=== PATIENT | female | born 1965 | race Caucasian/White ===

== ENCOUNTER 2019-01-09 15:37 | Emergency (ER) | payer SELFPAY ==
[~2019-01-09] VITALS: Ht 157.5 cm; Wt 100.0 kg
[~2019-01-09 15:37] MED LIST: LEVO112T4 PO
[2019-01-09] MEDS ORDERED: SODIUM PHOS/SODIUM BIPHOS 133 ML ENEMA PR ONE (16:30)
[2019-01-09] MEDS ORDERED: MAGNESIUM CITRATE 300 ML ORAL SOLUTION PO ONE (16:30)
[2019-01-09] MEDS ORDERED: KETOROLAC TROMETHAMINE 30 MG/ML VIAL IM ONE (16:30)
[2019-01-09] MEDS ORDERED: ZINC OXIDE 40%/COD LIVER OIL 57 GM PASTE TP SCH (18:15)
[2019-01-09] MEDS ORDERED: ZINC OXIDE 16% PASTE 57 GM TUBE TP ONE (18:15)
[2019-01-09 18:33] VITALS: BP 126/74
== END 2019-01-09 18:35 | disposition home or self-care (01) ==
LOC: EMS 15:38
DX: K59.00 Constipation, unspecified (principal); E03.9 Hypothyroidism, unspecified
CPT/HCPCS: 96372; 99284; J1885